=== PATIENT | female | born 1955 | race Caucasian/White ===

== ENCOUNTER → 2018-07-27 07:54 | Outpatient (CLI) | payer BC, SELFPAY ==
--- NOTE | 2018-07-27 07:57 | US_ITS ---
US abdomen limited History:Nausea and vomiting with diarrhea Ordering Physician:Owen Ross MD Patient Age: 62 years Comparison:None Findings: Pancreas:Unremarkable. No obvious mass or abnormal fluid collection. No ductal dilatation Liver:No focal liver lesions demonstrated. Homogeneous echogenicity. No intrahepatic biliary ductal dilatation evident Right Kidney:Unremarkable. Normal size and echogenicity. No hydronephrosis. There is a 1 7-m right renal cyst inferiorly and a 1.8 cm right peripelvic renal cyst. Gallbladder: There is a nonmobile hyperechoic focus along the posterior aspect of the gallbladder wall measuring 5 mm. This does not shadow follow-up. Common bile duct is normal at 2 mm. No wall thickening or pericholecystic fluid is evident. IMPRESSION: 1. Small gallbladder polyp. No shadowing stones. 2. Right renal cysts
== END ==
PROVIDERS: PCP Internal Medicine Adolescent Medicine; Visit Provider Internal Medicine Gastroenterology
DX: R11.0 Nausea (principal)
CPT/HCPCS: 76705

== ENCOUNTER → 2018-08-14 09:10 | Outpatient (POV) | payer BC, SELFPAY ==
[2018-08-14 11:53] LABS: Anion Gap 14.5 mEq/L (5-15); Blood Urea Nitrogen 16 mg/dL (7-18); Calcium 8.6 mg/dL (8.5-10.1); Carbon Dioxide 28 mmol/L (21.0-32.0); Chloride 103 mmol/L (98-107); Creatinine,Serum 0.93 mg/dL (0.55-1.02); Estimated Glomerular Filt Rate 61 ml/min (>60); GFR (African American) 74 ML/MIN (>60); Glucose 103 mg/dL (74-106); Potassium 3.5 mmoL/L (3.5-5.1); Sodium 142 mmol/L (136-145)
== END ==
PROVIDERS: Visit Provider Nurse Practitioner Acute Care
DX: R85.0 Abnormal level of enzymes in specimens from digestive organs and abdominal cavity (principal)
CPT/HCPCS: 36415; 80048

== ENCOUNTER → 2018-08-18 09:45 | Outpatient (CLI) | payer BC, SELFPAY ==
--- NOTE | 2018-08-18 09:51 | CT_ITS ---
CT abdomen wo/w con CLINICAL INDICATION: Nausea and vomiting, elevated pancreatic enzymes ITS.REASON: ELEVATED PANCREATIC ENZYMES ORDERING PHYSICIAN: Adriana Malave PATIENT AGE: 62 years COMPARISON: None TECHNIQUE: Axial images obtained without and with contrast with sagittal and coronal reformats. Post enhanced images are obtained at 30 seconds, 60 seconds, and [address] scans at the facility use one or more dose reduction, viz: automated exposure control, ma/kV adjustment per patient size (including targeted exams where dose is matched to indication, i.e. head), or iterative reconstruction technique. PROCEDURE: Oral Contrast: None IV Contrast: 75 mL Isovue-370. FINDINGS: There are minimal atelectatic changes or fibrosis in the left lung base. There is a 6 mm isodensity in the right hepatic lobe anteriorly and may be due to a small cyst. Small calcific density is noted posterior aspect of the gallbladder consistent with cholelithiasis. On the previous ultrasound there was a hyperechoic focus along the posterior aspect of the gallbladder but did not shadow. This may represent a small adherent stone as opposed to a polyp as mentioned on the gallbladder ultrasound. Spleen and adrenal glands are unremarkable. No pancreatic mass, ductal dilatation, or peripancreatic fluid collection evident. No renal or ureteral calculi or hydronephrosis. 2 cm ossific density is present in the right kidney posteriorly consistent with a renal cyst. Small parapelvic renal cysts are present on the right. No intestinal obstruction or free air no adenopathy. No abnormal fluid collections in the abdomen. The pelvis is not included on this exam. No evidence of aortic aneurysm. There is mild narrowing of the proximal aspect of the celiac artery of less than 50%. IMPRESSION: 1. Unremarkable appearing pancreas. No evidence of mass, ductal dilatation, or peripancreatic fluid collection. 2. Probable hepatic and right renal cyst 3. Small calcific density along the posterior wall the gallbladder suggesting a small gallstone
== END ==
PROVIDERS: PCP Internal Medicine Adolescent Medicine; Visit Provider Nurse Practitioner Acute Care
DX: R85.0 Abnormal level of enzymes in specimens from digestive organs and abdominal cavity (principal)
CPT/HCPCS: 74170; Q9967

== ENCOUNTER → 2020-06-16 10:51 | Outpatient (CLI) | payer BC, SELFPAY ==
--- NOTE | 2020-06-16 10:53 | XR_ITS ---
PROCEDURE: XR DEXA AXIAL SKELETON CLINICAL HISTORY: POST MENOPAUSAL COMPARISON: No exams were available for comparison FINDINGS: The right hip BMD is 0.752 with a T-score of -1.6. The left hip BMD is 0.730 with a T-score of -1.7. The lumbar spine BMD is 0.896 with a T-score of -1.4. IMPRESSION: This patient is considered osteopenic according to the World Health Organization criteria. Bone density is between 10 and 25 percent below young normal. Fracture risk is moderate. Treatment is advised. Based on these results a follow-up exam is recommended in 2 year. Dictated by: Kb Stratton MD 06/16/2020 20:33 Kb Stratton MD in [place] 06/17/2020 07:42
== END ==
PROVIDERS: PCP Internal Medicine Adolescent Medicine; Visit Provider Internal Medicine Adolescent Medicine
DX: Z78.0 Asymptomatic menopausal state (principal)
CPT/HCPCS: 77080

== ENCOUNTER → 2020-08-09 11:04 | Outpatient (CLI) | payer BC, SELFPAY ==
[2020-08-09 12:55] LABS: Coronavirus 19 IgG Antibody Negative (Negative); Coronavirus 19 IgM Antibody Negative (Negative)
== END ==
PROVIDERS: Visit Provider Internal Medicine Gastroenterology
DX: Z01.818 Encounter for other preprocedural examination (principal); Z12.11 Encounter for screening for malignant neoplasm of colon
CPT/HCPCS: 36415; 86328

== ENCOUNTER 2020-08-11 07:33 | Day surgery (SDC) | payer BC, SELFPAY ==
[2020-08-05 10:15] VITALS: BMI 22.2
[2020-08-11 07:49] VITALS: BP 134/68; PULSE 75; RESP 18; TEMP 36.8; O2SAT 100
--- NOTE | 2020-08-11 08:18 | HMH.ANESCL ---
[facility] Anesthesia Checklist - Patient Identification Patient Identification: Arm Band - Structural Data Admitted From: Home Planned Operative Procedure/s: colonoscopy Consent for Planned Operative Procedure(s) Verified: Yes Verified Documents: Surgical Consent, History and Physical - NPO Status Verified Time NPO: 00:00 - Additional verifications Anesthesia Reactions: No - Airway Assessment C-Spine Mobility Assessed: Yes (mp2) TMJ Mobility Assessed: Yes Dentition: Good Dentition - Neurological Assessment Level of Consciousness: Awake, Alert - Anesthesia Plan Anesthesia Risk discussed: Yes Anesthesia Plan: Verified ASA Class: II Anesthesia Type: MAC [facility] History I have reviewed the patient's past medical history: Yes Medical History: Reports:: Depression Denies:: Cancer, Diabetes Mellitus Type 1, Diabetes Mellitus Type 2, Internal Pacemaker, Lung Disease, MRSA, Seizures *Have you ever received a pneumonia vaccine?: Yes *Have you received a flu vaccine this season?: Yes Other Medical History: Reports: Hypothyroidism Anesthesia experience/problems:: nac Other Surgeries: Yes: Tubal Ligation, Other. No: Pacemaker Amputation: No Fractures: No - *Social History Last grade of school completed: Advanced degree Smoking Status: Never smoker Alcohol Intake: current Alcohol Intake Frequency:: 0-2 drinks per day Substance Use Type: denies use *Occupational Status:: retired Housing: house Household Members: spouse *Travel in the last 8 weeks: Inside the [place] - Psychiatric History Pschychiatric History:: Reports:: Depression Family Hx:: Cancer, Hypertension
[2020-08-11 08:22] VITALS: O2SAT 97
--- NOTE | 2020-08-11 08:29 | HMH.PROC ---
[facility] Procedure Note Procedure Note:: Colonoscopy Procedure Report: Colonoscopy with cold snare polypectomy Endoscopist: Owen Ross II, MD Referring physician: Nicholas Moya M.D. Date of Procedure: August 11, 2020 Equipment: Olympus 180 variable stiffness pediatric colonoscope Sedation: MAC sedation Indication: Mrs. Penaloza is a 64-year-old female who is here for follow-up screening/surveillance colonoscopy secondary to a personal history of colon polyps. The patient has had 2 prior colonoscopies and her last was a couple of years ago (Dr. Chris Ragland). She reports no abdominal pain, weight loss, change in her bowel habits or rectal bleeding. She reports no family history of colon cancer. Procedure: Prior to the procedure, a history and physical exam was performed, and patient's medications and allergies were reviewed. The risks, benefits and alternatives of the sedation and procedure were discussed with the patient. All questions were answered and informed consent was obtained. The patient was brought to the procedure room. Patient identification and proposed procedure were verified by the physician and the nurse. The patient was placed in a left lateral decubitus position and the scope was passed under direct vision. Throughout the procedure, the patient's blood pressure, pulse, and oxygen saturations were monitored continuously. The colonoscopy was accomplished without difficulty. The patient tolerated the procedure well. Findings: On digital rectal examination there was normal rectal tone. There were no external hemorrhoids. The colonoscope was introduced through the anal canal to the rectum and advanced to the cecum. The ileocecal valve and appendiceal orifice were identified. The scope was advanced a short distance into the ileum which appeared grossly normal. The scope was then withdrawn into the colon. The cecum, ascending and transverse colon and mucosa were grossly normal. There was a diminutive 3 mm sigmoid polyp removed via cold snare polypectomy. There were mildly scattered diverticuli throughout the descending and sigmoid colon (LEFT colon). There was very mild melanosis coli. The rectum itself was normal. Upon retroflexion within the rectum there were grade 1-2 internal hemorrhoids. The preparation was excellent throughout with [place] Preparation Score of 9. The cecal time was 12 minutes. Impression: 1. Diminutive sigmoid colon polyp (3 mm) 2. Mild left-sided diverticulosis 3. Mild melanosis coli 4. Grade 1-2 internal hemorrhoids Plan: I will follow up the polyp pathology and recommend repeat colonoscopy again in 7-10 years based upon the polyp histology. I would encourage bulk fiber supplementation on a long-term daily maintenance basis.
[2020-08-11 08:50] VITALS: BP 93/60; PULSE 80; RESP 12; TEMP 36.2; O2SAT 97
[2020-08-11 09:00] VITALS: BP 109/70; PULSE 83; RESP 16; O2SAT 98
[2020-08-11 09:10] VITALS: BP 120/75; PULSE 75; RESP 16; O2SAT 100
[2020-08-11 09:20] VITALS: BP 123/83; PULSE 80; RESP 16; TEMP 36.2; O2SAT 100
== END 2020-08-11 09:36 | disposition home or self-care (01) ==
PROVIDERS: PCP Internal Medicine Adolescent Medicine; Visit Provider Internal Medicine Gastroenterology
PROC: 0DJD8ZZ Inspection of Lower Intestinal Tract, Via Natural or Artificial Opening Endoscopic (ICD-10-PCS; CPT 45378; principal; 2020-08-11 08:30)
DX: Z12.11 Encounter for screening for malignant neoplasm of colon (principal); K64.0 First degree hemorrhoids; K63.5 Polyp of colon; K57.30 Diverticulosis of large intestine without perforation or abscess without bleeding; K63.89 Other specified diseases of intestine; Z86.010 Personal history of colon polyps; F32.9 Major depressive disorder, single episode, unspecified; E03.9 Hypothyroidism, unspecified
CPT/HCPCS: 45385